=== PATIENT | male | born 1975 ===

== ENCOUNTER 2023-02-13 13:06 | Outpatient (REF) | payer MEDICARE, MEDICAID, SELFPAY | END 2023-02-13 13:07 | disposition home or self-care (01) | LOC: HO.HAP 13:06 | PROVIDERS: PCP Nurse Practitioner Family; Visit Provider Otolaryngology | DX: Z46.1 Encounter for fitting and adjustment of hearing aid (principal); H90.3 Sensorineural hearing loss, bilateral | CPT/HCPCS: 92591 ==

== ENCOUNTER 2023-03-06 08:24 | Outpatient (REF) | payer MEDICARE, MEDICAID, SELFPAY | END 2023-03-06 08:25 | disposition home or self-care (01) | LOC: HO.HAP 08:24 | PROVIDERS: Visit Provider Nurse Practitioner Family | DX: Z46.1 Encounter for fitting and adjustment of hearing aid (principal); H90.3 Sensorineural hearing loss, bilateral | CPT/HCPCS: 92595; V5011; V5020; V5160; V5261; V5299 ==

== ENCOUNTER 2023-03-27 07:59 | Outpatient (REF) | payer MEDICARE, MEDICAID, SELFPAY ==
--- NOTE | 2023-03-27 09:44 | MHC.AU.HA3 ---
Hearing Instrument Follow-Up- Binaural Date of Visit: 03/27/23 Right Ear: Make, Model, Color, Serial Number: Oticon Real 2 miniRITE-R SN: [id number] Color: Klaus Brown [employer]ical Readiness Officer Repair Warranty: 03/20/2026 [employer] T[employer]ical Readiness Officer Loss and Damage Warranty: 03/20/2026 [facility] Service Plan: 03/06/2024 Battery Size: Rechargeable 3Rd Grade Reading Teacher/Slim Tube: 3/85 [place]/Dome/CShell/SlimTip:8mm double anne dome (no retention tail) Type of Wax Guard: miniFit ProWax Dispensed By: [facility] Date of Fittin03/06/2023 Left Ear: Make, Model, Color, Serial Number: Oticon Real 2 miniRITE-R SN: [id number] Color: Klaus Brown [employer] Tactical Readiness Officer Repair Warranty: 03/20/2026 [employer] T[employer]ical Readiness Officer Loss and Damage Warranty: 03/20/2026 [facility] Service Plan: 03/06/2024 Battery Size: Rechargeable 3Rd Grade Reading Teacher/Slim Tube: 3/85 [place]/Dome/CShell/SlimTip: 8mm double anne dome (no retention tail) Type of Wax Guard: miniFit ProWax Dispensed By: [facility] Date of Fittin03/06/2023 Follow-Up Summary: Overall doing well with the hearing aids. Data logging showed about 9 hours of use per day. Upon inspection, both wax guards plugged and hearing aids not working. However, Ronen could not identify that hearing aids were . Cleaned hearing aids and replaced wax guards. Right hearing aid working well. Left hearing aid still - wax build up noted behind wax guard in real estate broker associate, which could not be fully removed. Replaced left real estate broker associate and hearing aid working well. Otoscopy clear, AU. Also ran both hearing aids through dehumidifier as Ronen reported that left one fell into the toilet. Once hearing aids were working again, Ronen could hearing the static of rubbing his hands over the microphones. Advised using this as a method to ensure hearing aids are working. Discussed need to change domes and wax guards on as-needed basis. Recommendations: Hearing instrument maintenance in 6 months, or sooner if needed. Please contact our clinic with any questions or concerns. Diagnosis Code(s): Primary Diagnosis: H90.3 Bilateral Sensorineural Hearing Loss Signature: Provider: Lenny Carvajal, [facility]
== END 2023-03-27 08:00 | disposition home or self-care (01) ==
LOC: HO.HAP 07:59
PROVIDERS: Visit Provider Nurse Practitioner Family
DX: Z13.89 Encounter for screening for other disorder (principal)